=== PATIENT | male | born 2000 | race Caucasian/White ===

== ENCOUNTER 2023-10-29 13:33 | Emergency (ER) | payer SELFPAY ==
[~2023-10-29] VITALS: Ht 182.9 cm; Wt 100.0 kg
[2023-10-29 13:47] VITALS: BP 129/82; PULSE 97; RESP 16; TEMP 98.2; O2SAT 99
[2023-10-29] MEDS ORDERED: TETANUS, DIPHTHERIA, PERTUSSIS VAC/PF 0.5ML (>10YR OLD) IM ONE (16:15)
[2023-10-29] MEDS ORDERED: IBUP-2028 MT (16:47)
[2023-10-29] MEDS ORDERED: BO1 TP (16:47)
== END 2023-10-29 18:02 | disposition home or self-care (01) ==
LOC: ER 13:33
DX: S60.031A Contusion of right middle finger without damage to nail, initial encounter (principal); W31.89XA Contact with other specified machinery, initial encounter; Y93.89 Activity, other specified; Y92.89 Other specified places as the place of occurrence of the external cause; Y99.8 Other external cause status
CPT/HCPCS: 73140; 99283; Z7610